=== PATIENT | female | born 1945 | race Two or more races ===

== ENCOUNTER 2019-04-01 03:31 | Emergency (ER) | payer MEDICARE ==
[~2019-04-01] VITALS: Ht 167.6 cm; Wt 85.3 kg
--- NOTE | 2019-04-01 03:46 | NUR ---
PT CAME TO ER C/O LEFT LOWER ABDOMINAL PAIN THAT RADIATES TO THE LEFT LOWER BACK. AAOX4. NOT IN ANY DISTRESS. NO SOB. BREATHING EVENLY AND UNLABORED.CONNECTED TO MONITOR.
--- NOTE | 2019-04-01 03:55 | NUR ---
URINE COLLECTED AND SENT TO LAB
[2019-04-01] MEDS ORDERED: MORPHINE SULFATE INJ 4 MG/ML DISP.SYRIN ONE (04:07)
[2019-04-01 04:26] LABS: BASOPHILS % (AUTO) 0.3 % (0.0-2.0); HEMATOCRIT 38 % (33-45); HEMOGLOBIN 12.5 g/dL (11.5-14.8); LYMPHOCYTES # (AUTO) 2.6 /CMM (0.8-4.8); LYMPHOCYTES % (AUTO) 22.6 % (20.0-44.0); MEAN CORPUSCULAR HGB CONC 33 g/dl (31.0-36.0); MEAN CORPUSCULAR VOLUME 95 fL (82-100); MONOCYTES # (AUTO) 0.9 /CMM (0.1-1.30); MONOCYTES % (AUTO) 7.7 % (2.0-12.0); NEUTROPHILS # (AUTO) 7.8 /CMM (1.8-8.9); NEUTROPHILS % (AUTO) 68.4 % (43.0-81.0); PLATELET COUNT (AUTO) 330 /CMM (150-450); WHITE BLOOD COUNT (AUTO) 11.4 K/uL (4.3-11.0)
[2019-04-01] MEDS ORDERED: MORPHINE SULFATE INJ 2 MG/ML DISP.SYRIN IV ONE (04:30)
[2019-04-01 04:33] LABS: CALCIUM, SERUM 9.2 mg/dL (8.5-10.1); CREATININE 0.8 mg/dL (0.6-1.3); POTASSIUM 4.4 mmol/L (3.5-5.1)
[2019-04-01 04:40] LABS: ALBUMIN 3.4 g/dL (3.4-5.0); BILIRUBIN,DIRECT 0.1 mg/dL (0.0-0.2); BILIRUBIN,TOTAL 0.3 mg/dL (0.2-1.0); TOTAL PROTEIN, SERUM 7.4 g/dL (6.4-8.2)
[2019-04-01] MEDS ORDERED: IV NS 0.9% 250 ML IV ONE (04:46)
[2019-04-01] MEDS ORDERED: IOHEXOL-300 100 ML VIAL IV ONE (04:46)
[2019-04-01] MEDS ORDERED: CT SWABBABLE VALVE TRANS SET 1 EA INFUS.SET MC ONE (04:46)
--- NOTE | 2019-04-01 04:50 | NUR ---
radiology called for ct
--- NOTE | 2019-04-01 04:53 | NUR ---
patient sent to ct via [facility]
--- NOTE | 2019-04-01 05:14 | NUR ---
return from ct
[2019-04-01 06:40] VITALS: BP 135/67
== END 2019-04-01 06:41 | disposition home or self-care (01) ==
LOC: ER 03:39
DX: K86.89 Other specified diseases of pancreas (principal); R10.12 Left upper quadrant pain; I10 Essential (primary) hypertension; E78.5 Hyperlipidemia, unspecified
CPT/HCPCS: 36415; 74177; 80048; 80076; 83690; 85025; 96374; 99284; J2270; J7050; Q9967

== ENCOUNTER 2020-10-24 10:09 | Emergency (ER) | payer MEDICARE ==
[~2020-10-24] VITALS: Ht 182.9 cm; Wt 91.6 kg
--- NOTE | 2020-10-24 10:24 | NUR ---
DR EVANS AT BEDSIDE FOR EVAL.
--- NOTE | 2020-10-24 10:31 | NUR ---
PT TO RADIOLOGY FOR CT HEAD AND C SPINE VIA [facility].
[2020-10-24] MEDS ORDERED: ACETAMINOPHEN ES 500 MG TABLET ONE (11:08)
[2020-10-24] MEDS: ACETAMINOPHEN ES 500 MG TABLET PO ONE (11:13)
--- NOTE | 2020-10-24 11:17 | NUR ---
SEEN AND EVALUATED BY DR EVANS, MEDICALLY CLEARED. WAS GIVEN TYLENOL FOR HEADACHE ACI AND IMAGING COPIES PROVIDED. D/C IN STABLE CONDITION.
[2020-10-24 11:23] VITALS: BP 132/80
== END 2020-10-24 11:24 | disposition home or self-care (01) ==
LOC: ER 10:14
DX: S30.0XXA Contusion of lower back and pelvis, initial encounter (principal); S00.03XA Contusion of scalp, initial encounter; S09.8XXA Other specified injuries of head, initial encounter; R51.9 Headache, unspecified; I10 Essential (primary) hypertension; E78.5 Hyperlipidemia, unspecified; Z79.899 Other long term (current) drug therapy; W06.XXXA Fall from bed, initial encounter; Y93.89 Activity, other specified; Y92.89 Other specified places as the place of occurrence of the external cause; Y99.8 Other external cause status
CPT/HCPCS: 70450-TC; 72131-TC

== ENCOUNTER 2020-11-22 08:54 | Emergency (ER) | payer MEDICARE ==
[~2020-11-22] VITALS: Ht 165.1 cm; Wt 88.5 kg
--- NOTE | 2020-11-22 08:54 | NUR ---
PT BIB SON C/O R HAND LACERATION S/P GLF THIS AM AT 4AM. PT IS AAOX4, NOT IN RESPIRATORY DISTRESS, V/S STABLE, KEPT RESTED AND COMFORTABLE. WILL CONTINUE TO MONITOR.
--- NOTE | 2020-11-22 09:12 | NUR ---
AT BEDSIDE FOR EVAL.
[2020-11-22] MEDS ORDERED: LIDOCAINE /MPF 1% VIAL 5 ML VIAL ONE (09:15)
[2020-11-22] MEDS ORDERED: TDAP [DIPH/PERTUSSIS/TET] 0.5 ML VIAL IM ONE ×2 (09:16→09:30)
--- NOTE | 2020-11-22 09:23 | NUR ---
GLEN CRANE AT BEDSIDE FOR WOUND CLEANING,.
--- NOTE | 2020-11-22 09:30 | NUR ---
TRIMMER AND REINFORCER AT BEDSIDE FOR XRAY.
--- NOTE | 2020-11-22 10:05 | NUR ---
SUTURING DONE BY .
[2020-11-22] MEDS ORDERED: LIDOCAINE 1% INJ 50 ML MDV IJ ONE (10:07)
--- NOTE | 2020-11-22 10:35 | NUR ---
CUSTOMER ORDER CLERK AT BEDSIDE FOR WOUND DRESSING AND SPLINTING.
[2020-11-22 10:40] VITALS: BP 125/68
--- NOTE | 2020-11-22 10:43 | NUR ---
Patient discharged to home in stable condition. Written and verbal after care instructions given. Patient verbalizes understanding of instruction.
== END 2020-11-22 10:44 | disposition home or self-care (01) ==
LOC: ER 09:01
DX: S61.411A Laceration without foreign body of right hand, initial encounter (principal); I10 Essential (primary) hypertension; E78.5 Hyperlipidemia, unspecified; W18.39XA Other fall on same level, initial encounter; Y93.89 Activity, other specified; Y92.89 Other specified places as the place of occurrence of the external cause; Y99.8 Other external cause status
CPT/HCPCS: 12002; 73120; 90471; 90715; 99283; A6403; J3490 ×2